=== PATIENT | male | born 1980 | race Caucasian/White ===

== ENCOUNTER 2018-12-21 12:54 | Day surgery (SDC) | payer BC ==
[~2018-12-21 12:54] MED LIST: CEFAZOLIN 2 GM/D5W RTU 2 GM/50 ML RTUPB IV PRN
[2018-12-21] MEDS ORDERED: BUPIVACAINE HCL 0.5 % INJ/PF 30 ML SDV ONE (14:11)
[2018-12-21] MEDS ORDERED: MIDAZOLAM 2 MG/2 ML INJ ONE ×2 (15:34→17:07)
[2018-12-21] MEDS ORDERED: ACETAMINOPHEN 325 MG TABLET ONE (15:35)
[2018-12-21] MEDS ORDERED: CEFAZOLIN 2 GM/D5W RTU 2 GM/50 ML RTUPB IV ONE (15:36)
[2018-12-21] MEDS ORDERED: FENTANYL CITRATE INJ/PF 100 MCG/2 ML AMPUL ONE (17:07)
[2018-12-21] MEDS ORDERED: HYDROMORPHONE HCL INJ/PF 2 MG/ML AMPULE ONE (17:07)
[2018-12-21] MEDS ORDERED: PROPOFOL INJ 200 MG/20 ML VIAL IV ONE (17:08)
[2018-12-21] MEDS ORDERED: ONDANSETRON HCL INJ/PF 4 MG/2 ML SDV ONE (17:08)
[2018-12-21] MEDS ORDERED: MEPERIDINE HCL/PF INJ 25 MG/1 ML DISP.SYRIN IV PRN (17:48)
[2018-12-21] MEDS ORDERED: FENTANYL CITRATE INJ/PF 100 MCG/2 ML AMPUL IV PRN ×3 (17:48)
[2018-12-21] MEDS ORDERED: PROMETHAZINE HCL INJ 25 MG/1 ML VIAL IV PRN (17:48)
[2018-12-21] MEDS ORDERED: DIPHENHYDRAMINE HCL 50 MG/ML VIAL IV PRN (17:48)
[2018-12-21] MEDS ORDERED: ONDANSETRON HCL INJ/PF 4 MG/2 ML SDV IV PRN (18:24)
[2018-12-21] MEDS ORDERED: OXYCODONE-ACETAMINOPHEN 5-325 MG TABLET PO PRN (18:24)
[2018-12-21] MEDS ORDERED: MORPHINE SULFATE 10 MG/ML INJ IV PRN (18:24)
--- NOTE | 2018-12-21 18:30 | Operative Report ---
Operative Report DATE OF SURGERY: 12/21/18 PREOPERATIVE DIAGNOSIS: Right ring finger/middle finger laceration with volar s oft tissue loss ring finger POSTOPERATIVE DIAGNOSIS: Same OPERATION: Irrigation debridement right ring finger with placement of full- thickness skin graft SURGEON: OSIEL LUCIO ANESTHESIA: GA COMPLICATIONS: None ESTIMATED BLOOD LOSS: Minimal PROCEDURE: Indication for above procedure: 38-year-old male who inadvertently sustained soft tissue injury with loss along ring finger after he was throwing a toaster and his finger got caught resulting in avulsion. Patient was seen at the emergency room the area was copiously irrigated with normal saline and soft dressing placed. Patient subsequent follow-up with me at which point we discussed treatment options including operative versus nonoperative intervention after discussing risks benefits and amount of soft tissue loss decision was made to proceed with operative t reatment. Procedure In Detail: Patient was seen and evaluated in the preoperative holding area. The upper extremity was initialized and marked. Patient received 2g of Ancef IV for bacterial prophylaxis. Patient was taken back to the operative room where transferred to the operative table and placed under general anesthesia. Once they were adequately anesthetized a nonsterile tourniquet was placed on the upper extremity. A surgical team debriefing was performed ensuring all instrumentation was available, the surgical procedure was discussed with possible concerns reviewed. The upper extremity was prepped with Betadine and draped in a sterile fashion. A timeout was done identifying correct patient, procedure and extremity everyone in attendance agree with this and verbalized no concerns. The extremity was exsanguinated the tourniquet was inflated to 250 mmHg. Ring finger digit was explored there was evidence of granulation tissue along the radial and ulnar borders protecting the underlying neurovascular bundle. There was a defect centrally proximally 9 mm extending from the PIP joint flexion crease the midportion of the distal phalanx equating to approximately 3 cm. Distal tip remained intact and viable. There was no evidence of exposed tendon, paratenon or marlin sheath. Thus decision was made to proceed with full-thickness skin graft I did not feel patient required advancement flap given the amount of soft tissue coverage and protection. Area was irrigated with saline. Edges were debrided. Template was then formatted over the defect and a full-thickness skin graft planned along the ulnar aspect of the forearm. A 3 cm x 1 cm full-thickness skin graft was then harvested and the graft defatted. Any peripheral bleeding was controlled with bipolar cautery. Wound was irrigated with normal saline. Skin was undermined and subcutaneous tissues closed with interrupted 4-0 Monocryl suture. Skin was closed with running subcuticular 4-0 Monocryl reinforced with Dermabond Steri-Strips. 10 cc of 0.5% Marcaine without epinephrine was injected for postoperative pain control. Full-thickness skin graft was then inset and secured with interrupted 4-0 chrom ic gut suture. There was adequate fixation of the graft with passive flexion/extension of the PIP joint. Xeroform 4 x 4's and a compression bandage was placed and secured with Coban. The adjacent middle finger was dressed with Xeroform 4 x 4's and Coban. Tourniquet was then deflated. Patient had good peripheral effusion with normal skin turgor/capillary refill of all digits. Sponge counts, instrument counts, needle counts were correct. Patient was then awoken from anesthesia. Transferred from the operating room table to the operating room stretcher. There was no intraoperative complications patient tolerated procedure well stable to PACU. Postop plan: Patient follow-up the office in 2 weeks at which point we will proceed with wound check.
--- NOTE | 2018-12-21 18:31 | Discharge Summary ---
Discharge Summary (SDC) - Discharge Final Diagnosis: Right ring finger/middle finger laceration with volar soft tissue loss ring finger Date of Surgery: 12/21/18 Discharge Date: 12/21/18 Condition: Good Treatment or Instructions: Schedule Follow Up w/ Dr. Kiel Cristina @ [facility] for Surgery to be seen in 10-14 days or as scheduled [place]: [place]: [place]: KEEP RING FINGER DRESSING COVERED AND DRY MAY CHANGE DRESSING TO MIDDLE FINGER DAILY Ice and elevate Stool softener of choice when on pain medication. USE OF XWLA-BPN-RASVOMB IBUPROFEN: Ibuprofen (Advil, Nuprin, Medipren, Motrin IB) is a medication for fever and pain control. In addition, it has anti- inflammatory effects which may be beneficial, especially in the treatment of injuries. It's best to take ibuprofen with food. Persons with ulcer disease or allergy to aspirin should notify their physician of this before taking ibuprofen. Ibuprofen can be given every four to six hours, for a total of four doses daily. Age Pain or fever dose Antiinflammatory dose 6-8 yr 200 mg (1 tab) 200 mg (1 tab) 9-11 yr 200 mg (1 tab) 200-400 mg (1-2 tab) 11-14 yr 200-400 mg (1-2 tab) 400 mg (2 tab) 15-adult 400 mg (2 tab) 600 mg (3 tab) ORAL NARCOTIC MEDICATION: You have been given a prescription for pain control. This medication is a narcotic. It's best taken with food, as nausea can result if taken on an empty stomach. Don't operate machinery or drive within six hours of taking this medication. Do not combine this medicine with alcohol, or with any medication which can cause sedation (such as cold tablets or sleeping pills) unless you get permission from the physician. Narcotics tend to cause constipation. If possible, drink plenty of fluids and eat a diet high in fiber and fruits. Please be aware that prescription narcotics also have the potential for abuse. People become addicted to these medications because of the general sense of wellbeing that they induce. This feeling along with a significant reduction in tension, anxiety, and aggression provides a stimulating seductive quality to these drugs. Once your pain is under control, we encourage you to discard your unused narcotics. Prescriptions: Oxycodone HCl/Acetaminophen [Percocet 5-325 mg Tablet] 1 tab PO Q6 PRN #25 tab PRN Reason: Referrals: ZAIRE GRIGGS MD [Primary Care Provider] - Discharge Diet: As Tolerated Respiratory Treatments at Home: Deep Breathing/Coughing Discharge Activity: No Lifting Over 10 Pounds, No Lifting/Push/Pulling Report the Following to Your Physician Immediately: Fever over 101 Degrees, Unusual Bleeding, Redness, Swelling, Warmth, Increased Soreness
[2018-12-21] MEDS: FENTANYL CITRATE INJ/PF 100 MCG/2 ML AMPUL ONE ×2 (18:57→19:02)
[2018-12-21 21:01] VITALS: BP 142/71
== END 2018-12-21 20:40 | disposition home or self-care (01) ==
LOC: OROUT 12:54
PROVIDERS: ATTEND Orthopaedic Surgery
DX: S61.214A Laceration without foreign body of right ring finger without damage to nail, initial encounter (principal); S61.212A Laceration without foreign body of right middle finger without damage to nail, initial encounter; W45.8XXA Other foreign body or object entering through skin, initial encounter; Z79.899 Other long term (current) drug therapy
CPT/HCPCS: 15240; J2250; J3490; J3010; J1170; J2405; J2704; J0690; 400